=== PATIENT | female | born 1970 | race Caucasian/White ===

== ENCOUNTER 2017-01-13 16:07 | Emergency (ER) | payer OTHER ==
[2017-01-13 16:18] VITALS: BMI 26.6
--- NOTE | 2017-01-13 16:56 | PDOC ---
History of Present Illness <Bijal Scherer - Last Filed: 01/13/17 17:02> - History of Present Illness Initial Comments: 01/13/17 17:02 - History of Present Illness Initial Comments: 01/13/17 17:01 The patient is a 46 year old female with no past medical hx who presents with pain and swelling to her left ring finger since 1400 yesterday afternoon. The patient notes she sledding down a hill and noticed she was going too fast towards a tree so she put her left hand down into the snow to slow down. She reports she felt her finger bend backwards and has been having pain to her ring finger since. She states the pain and swelling to her finger has been progressively worsening. She describes the pain as sharp, 4/10, and constant. She took Tylenol last night with no relief of pain. The patient went to [facility] (urgent care) a half hour ago and was sent to the ED for an X-Ray because the X-Ray machine was not working at the urgent care. The patient reports she is unable to get her rings off of her finger secondary to the swelling. She is right hand dominant. She denies any radiation of pain and has no further complaints at this time. Social: Nonsmoker Allergies: Iodine <Bijal Scherer - Last Filed: 01/13/17 17:01> <Shanti Bhandari - Last Filed: 01/15/17 21:02> - General Chief Complaint: Injury Stated Complaint: LEFT HAND INJURY Time Seen by Provider: 01/13/17 16:22 Past History <Bijal Scherer - Last Filed: 01/13/17 17:02> - Past Medical History Other medical history: EXCISION OF BENIGN MENIGIOMA ON SKULL - Psycho/Social/Smoking Cessation Hx Anxiety: No Suicidal Ideation: No Smoking History: Never smoked Information on smoking cessation initiated: No Hx Alcohol Use: No Drug/Substance Use Hx: No Substance Use Type: None <Shanti Bhandari - Last Filed: 01/15/17 21:02> - Past Medical History Allergies/Adverse Reactions: Allergies Allergy/AdvReac Type Severity Reaction Status Date / Time Iodinated Contrast Media - AdvReac Difficulty Verified 01/13/17 16:16 Oral and Breathing Home Medications: Ambulatory Orders NK [No Known Home Medication] 01/13/17 Review of Systems - Review of Systems Able to Perform ROS?: Yes Comments:: 01/13/17 17:03 Remainder of the review of systems is negative - HPI review of systems is as per history of present illness and otherwise negative <Bijal Scherer - Last Filed: 01/13/17 17:02> *Physical Exam - Vital Signs Last Vital Signs Temp Pulse Resp BP Pulse Ox 98.5 F 100 H 18 145/89 98 01/13/17 16:16 01/13/17 16:16 01/13/17 16:16 01/13/17 16:16 01/13/17 16:16 <Bijal Scherer - Last Filed: 01/13/17 17:02> - Vital Signs Last Vital Signs Temp Pulse Resp BP Pulse Ox 98.5 F 100 H 18 145/89 98 01/13/17 16:16 01/13/17 16:16 01/13/17 16:16 01/13/17 16:16 01/13/17 16:16 - Physical Exam Comments: 01/13/17 17:04 Physical exam Last Vital Signs Temp Pulse Resp BP Pulse Ox 98.5 F 100 H 18 145/89 98 01/13/17 16:16 01/13/17 16:16 01/13/17 16:16 01/13/17 16:16 01/13/17 16:16 Patient is alert and ambulatory and answering questions Head is normocephalic and atraumatic Left hand- There is swelling and tenderness of the left ring finger, and the patient's ring is stuck due to the swelling There is no tenderness on any other fingers There is no tenderness on the metacarpals or hand The radial pulses intact, and there is no wrist tenderness The fingers are all warm with intact sensation <Shanti Bhandari - Last Filed: 01/15/17 21:02> Medical Decision Making - Medical Decision Making 01/13/17 17:06 The ring was removed with a ring cutter After the ring was removed, the swelling started coming down On reexam, there is tenderness at the base of the fourth finger, with some decreased range of motion The finger is warm with intact sensation and good capillary refill 01/13/17 17:53 Left hand series as read by me-negative for fracture (there are metal filings on the patient's skin when she went to xray from cutting the ring) Impression-left fourth finger and left hand contusion <Shanti Bhandari - Last Filed: 01/15/17 21:02> *DC/Admit/Observation/Transfer - Attestations Scribe Attestion: 01/13/17 17:01 Documentation prepared by Bijal Scherer, acting as medical staff coordinator for Shanti Bhandari MD/DO. <Bijal Scherer - Last Filed: 01/13/17 17:02> <Shanti Bhandari - Last Filed: 01/15/17 21:02> Diagnosis at time of Disposition: Contusion of left ring finger, Hand contusion - Discharge Dispostion Disposition: HOME Condition at time of disposition: Stable - Patient Instructions Additional Instructions: Elevate and rest Ice packs off and on for the next 24 hours Tylenol or Motrin for pain Followup with your primary care physician in 24-48 hours Return immediately if you worsen in any way The x-ray reading is a preliminary reading, if there is any change when the radiologist reads the x-rays you will be called - Post Discharge Activity Work/School Note: Back to Work
[2017-01-13 17:07] VITALS: BP 145/89; PULSE 100; TEMP 98.5
== END 2017-01-13 18:14 | disposition home or self-care (01) ==
LOC: FER 16:07
DX: S60.042A Contusion of left ring finger without damage to nail, initial encounter (principal); W22.8XXA Striking against or struck by other objects, initial encounter; Y93.23 Activity, snow (alpine) (downhill) skiing, snowboarding, sledding, tobogganing and snow tubing; Y92.9 Unspecified place or not applicable
CPT/HCPCS: 73130-TC-LT; 99282-25